=== PATIENT | female | born 1980 | race African-American/Black ===

== ENCOUNTER 2017-09-23 10:08 | Emergency (ER) | payer SELFPAY ==
--- NOTE | 2017-09-23 11:18 | XRAY Preliminary Report ---
Exam: XR CHEST 2 VIEW X-RAY IMPRESSION: Large lung volumes which may be physiologic or due to airways disease such as asthma. No focal consolidation. [facility] SITE ID: [id number]
--- NOTE | 2017-09-23 11:23 | XRAY Report ---
EXAM: CHEST RADIOGRAPHY EXAM DATE: 09/23/2017 11:01 AM. CLINICAL HISTORY: Shortness of breath. COMPARISON: None. TECHNIQUE: 2 views. FINDINGS: Lungs/Pleura: The lungs are hyperinflated with increased retrosternal clear space. No focal consolida tion. No pleural effusion. No pneumothorax. Mediastinum: Heart and mediastinal contours are unremarkable. Other: Old healed rib fractures noted. IMPRESSION: Large lung volumes which may be physiologic or due to airways disease such as asthma. No focal consolidation. [facility] Referring Provider Line: [phone] SITE ID: [id number]
[2017-09-23] MEDS ORDERED: DEXAMETHASONE 10 MG/ML VIAL PO STA (11:34)
--- NOTE | 2017-09-23 11:37 | ED Physician Documentation ---
PD HPI DYSPNEA - Stated complaint Stated Complaint: SOA - Chief complaint Chief Complaint: Resp - History obtained from History obtained from: Patient - History of Present Illness Timing - onset: How many weeks ago (3-4) Timing - onset during: Rest Timing - duration: Weeks (3-4) Timing - details: Gradual onset, Still present, Waxing and waning Inciting event(s): Out of meds Improved by: Inhaler/neb, Steroids Worsened by: Exertion Associated symptoms: Cough, Wheezing. No: Fever, Hemoptysis Similar symptoms before: Diagnosis (asthma) Recently seen: Not recently seen - Additional information Additional information: 37-year-old female with a history of asthma has run out of her medications after an insurance change and she has not been able to afford her usual medications. She has been out of her medications for about 2 months and has been using some ipratropium bromide she has leftover and this has been inadequate. She describes gasping for breath this morning on her way to the hospital she used her last bit of ipratropium bromide. 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 She is not able to afford her Advair and this is a medication that has made it possible for her to survive without regular use of an inhaler. Review of Systems Constitutional: denies: Fever Eyes: denies: Decreased vision Ears: denies: Ear pain Nose: denies: Congestion Throat: denies: Sore throat Cardiac: denies: Chest pain / pressure, Palpitations Respiratory: reports: Dyspnea, Cough GI: denies: Abdominal Pain, Nausea, Vomiting : denies: Dysuria, Frequency PD PAST MEDICAL HISTORY - Past Medical History Past Medical History: Yes Respiratory: Asthma - Past Surgical History Past Surgical History: No - Present Medications Home Medications: Ambulatory Orders Medication Instructions Recorded Confirmed Fluticasone/Salmeterol 500/50 2 puffs INH QID 05/09/15 05/09/15 [Advair 500 Mcg/50 Mcg] Ipratropium/Albuterol Sulfate 2 puffs IH QID PRN #1 aer.w.adap 05/09/15 [Combivent Respimat Inhal Golden] Albuterol Oral Soln 2 mg PO Q6H #20 unit 01/19/16 09/23/17 Albuterol 2.5 mg INH Q4H PRN #30 neb 09/23/17 Budesonide [Pulmicort] 2 puffs INH DAILY 09/23/17 09/23/17 predniSONE [Deltasone] 10 mg PO DAILY #26 tablet 09/23/17 predniSONE [Prednisone] 1 tab PO DAILY 09/23/17 09/23/17 - Allergies Allergies/Adverse Reactions: Allergies Allergy/AdvReac Type Severity Reaction Status Date / Time methylprednisolone sodium AdvReac Anxiety Verified 09/23/17 10:24 succ... * [From Solu-Medrol] - Social History Does the pt smoke?: No Smoking Status: Never smoker Does the pt drink ETOH?: Yes Does the pt have substance abuse?: No - Immunizations Immunizations are current?: Yes - POLST Patient has POLST: No PD ED PE NORMAL - Vitals Vital signs reviewed: Yes (tachy and hypertensive ) - General General: Alert and oriented X 3, No acute distress, Well developed/nourished - HEENT HEENT: Atraumatic, PERRL, EOMI, Ears normal, Moist mucous membranes, Pharynx benign - Neck Neck: Supple, no meningeal sign, No bony TTP - Cardiac Cardiac: No murmur, Other (tachy to 100) - Respiratory Respiratory: No respiratory distress, Clear bilaterally - Abdomen Abdomen: Soft, Non tender - Back Back: No CVA TTP, No spinal TTP - Derm Derm: Normal color, Warm and dry, No rash - Extremities Extremities: No deformity, No edema - Neuro Neuro: Alert and oriented X 3, 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 No focal consolidation.) , EMP read indepedently, See rad report PD MEDICAL DECISION MAKING - ED course Complexity details: considered differential, d/w patient ED course: 29-year-old female with a history of asthma has acute exacerbation and has no medications. She is administered dexamethasone 10 mg here in the emergency department and we will write a prescription for some albuterol for her nebulizer machine as well as a short course of prednisone. Departure - Departure Disposition: Home, Self Care Clinical Impression: Asthma attack Qualifiers: Asthma severity: mild Asthma persistence: intermittent Qualified Code(s): J45.21 - Mild intermittent asthma with (acute) exacerbation Condition: Stable Instructions: ED Reactive Airway Disease Follow-Up: Pramod Bowser MD [Primary Care Provider] - Prescriptions: Albuterol 2.5 mg INH Q4H PRN #30 neb PRN Reason: Wheezing predniSONE [Deltasone] 10 mg PO DAILY #26 tablet
[2017-09-23] MEDS ORDERED: CHERRY SYRUP 10 ML UDC PO ONE (11:47)
[2017-09-23 11:49] VITALS: BP 131/96
== END 2017-09-23 11:49 | disposition home or self-care (01) ==
LOC: ED 10:08
DX: J45.21 Mild intermittent asthma with (acute) exacerbation (principal); T48.6X6A Underdosing of antiasthmatics, initial encounter; Z91.120 Patient's intentional underdosing of medication regimen due to financial hardship
CPT/HCPCS: 71046; 99283; A9270